=== PATIENT | male | born 1990 | race American Indian/Alaskan Native ===

== ENCOUNTER 2021-01-10 09:49 | Emergency (ER) | payer OTHER ==
[~2021-01-10] VITALS: Ht 160 cm; Wt 59.0 kg
[2021-01-10] MEDS ORDERED: HYDROCODON-ACE1 EA10 PO (10:35)
== END 2021-01-10 11:02 | disposition home or self-care (01) ==
LOC: ED 09:49
DX: S29.011A Strain of muscle and tendon of front wall of thorax, initial encounter (principal); X58.XXXA Exposure to other specified factors, initial encounter; Z87.891 Personal history of nicotine dependence
CPT/HCPCS: 71046; 99284-25

== ENCOUNTER 2023-10-02 16:07 | Emergency (ER) | payer MEDICAID, OTHER ==
[~2023-10-02] VITALS: Ht 160 cm; Wt 59.6 kg
[~2023-10-02 16:07] MED LIST: HYDROCODON-ACE1 EA10 PO
[2023-10-02] MEDS ORDERED: CYCLOBENZAPRINE10 MG PO (16:32)
[2023-10-02 16:41] VITALS: BP 116/81
== END 2023-10-02 16:43 | disposition home or self-care (01) ==
LOC: ED 16:07
DX: M54.50 Low back pain, unspecified (principal); Z87.891 Personal history of nicotine dependence
CPT/HCPCS: 99283